=== PATIENT | female | born 1940 | race Caucasian/White ===

== ENCOUNTER 2017-08-08 12:33 | Emergency (ER) | payer MEDICARE ==
[~2017-08-08] VITALS: Ht 170.2 cm; Wt 86.2 kg
[~2017-08-08 12:33] MED LIST changes: -Lasix20 MG PO; -POTCHL20ER PO
[2017-08-08] MEDS ORDERED: Lasix20 MG PO (16:42)
[2017-08-08] MEDS ORDERED: POTCHL20ER PO (16:42)
== END 2017-08-08 16:50 | disposition home or self-care (01) ==
LOC: ER 12:33
DX: I11.0 Hypertensive heart disease with heart failure (principal); I50.9 Heart failure, unspecified; E11.9 Type 2 diabetes mellitus without complications; Z85.3 Personal history of malignant neoplasm of breast; Z79.899 Other long term (current) drug therapy
CPT/HCPCS: 36415; 71260; 80053; 83880; 84484; 85025; 85379; 85651; 93005; 93010; 99284; Q9967

== ENCOUNTER → 2017-08-08 | Outpatient (CLI) | payer MEDICARE ==
[~2017-08-08] MED LIST: B Complex1 EAC2 PO; HYDACE10B PO; Hair, Skin & N1 EACH PO; KRILL OIL500 MG PO; LISI5 PO; Lasix20 MG PO; MAGOXI400 PO; Norco 10-325 T1 EACH PO; POTCHL20ER PO; PROM25 PO; THYR60 PO; Zofran Odt4 MG SL
[2017-08-08 12:24] LABS: BASOPHILS ABSOLUTE AUTO 0.02 K/mm3 (0.00-0.23); BASOPHILS PERCENT AUTO 0 % (0-2); EOSINOPHILS ABSOLUTE AUTO 0.14 K/mm3 (0.00-0.68); EOSINOPHILS PERCENT AUTO 2 % (0-6); Hemoglobin 14.2 g/dL (11.5-16.0); IMMATURE GRAN ABSOLUTE AUTO 0.03 K/mm3 (0.00-0.10); IMMATURE GRAN PERCENT AUTO 0 % (0-1); LYMPHOCYTES ABSOLUTE AUTO 1.47 K/mm3 (0.84-5.20); LYMPHOCYTES PERCENT AUTO 16 % (21-46); MONOCYTES ABSOLUTE AUTO 0.72 K/mm3 (0.16-1.47); MONOCYTES PERCENT AUTO 8 % (4-13); Mean Corpuscular HGB 29.5 pg (26.0-34.0); Mean Corpuscular HGB Conc 32.3 g/dL (31.5-36.5); Mean Corpuscular Volume 91 fL (80-100); Mean Platelet Volume 10.7 fL (9.1-12.4); NEUTROPHILS ABSOLUTE AUTO 7.11 K/mm3 (1.96-9.15); NEUTROPHILS PERCENT AUTO 75 % (41-73); Platelet Count 216 K/mm3 (150-400); RDW Coefficient Variation 12.9 % (11.7-14.2); RDW Standard Deviation 43.4 fL (35.1-46.3); Red Blood Cell Count 4.82 M/mm3 (3.80-5.20); White Blood Cell Count 9.49 K/mm3 (4.00-11.30)
[2017-08-08 12:37] LABS: Alanine Aminotransfer (ALT/SGP 25 U/L (12-78); Albumin, Blood 3.8 g/dL (3.4-5.0); Alk Phos 79 U/L (50-136); Anion Gap 6 mmol/L (6-16); Aspartate Aminotrans (AST/SGOT 18 U/L (12-37); Bilirubin, Total 0.8 mg/dL (0.1-1.0); Blood Urea Nitrogen 7 mg/dL (8-24); Bun/Creatinine Ratio 14.3 (12.0-20.0); CO2, Blood 28 mmol/L (21-32); Calcium, Blood 8.6 mg/dL (8.5-10.1); Chloride, Blood 108 mmol/L (98-108); Creatinine, Blood 0.49 mg/dL (0.40-1.00); Globulin, Blood 3.7 g/dL (2.2-4.0); Glomerular Filtration Rate >60 (60-); Glucose, Blood 126 mg/dL (70-99); Potassium, Blood 3.8 mmol/L (3.5-5.5); Sodium, Blood 142 mmol/L (136-145); Total Protein, Blood 7.5 g/dL (6.4-8.2)
== END ==
LOC: LAB SHORT 12:09
PROVIDERS: Family Medicine
DX: R05 Cough (principal); R53.82 Chronic fatigue, unspecified
CPT/HCPCS: 80053; 85025; 85651

== ENCOUNTER 2018-07-24 02:18 | Inpatient (IN) | payer OTHER, MEDICARE ==
[~2018-07-24] VITALS: Ht 170.2 cm; Wt 87.5 kg
[~2018-07-24 02:18] MED LIST changes: +Lasix20 MG PO; +POTCHL20ER PO
[2018-07-24 02:37] LABS: BASOPHILS ABSOLUTE AUTO 0.03 K/mm3 (0.00-0.23); BASOPHILS PERCENT AUTO 0 % (0-2); EOSINOPHILS ABSOLUTE AUTO 0.03 K/mm3 (0.00-0.68); EOSINOPHILS PERCENT AUTO 0 % (0-6); Hematocrit 21.3 % (33.0-51.0); Hemoglobin 6.8 g/dL (11.5-16.0); IMMATURE GRAN ABSOLUTE AUTO 0.15 K/mm3 (0.00-0.10); IMMATURE GRAN PERCENT AUTO 1 % (0-1); LYMPHOCYTES ABSOLUTE AUTO 1.97 K/mm3 (0.84-5.20); LYMPHOCYTES PERCENT AUTO 17 % (21-46); MONOCYTES ABSOLUTE AUTO 0.21 K/mm3 (0.16-1.47); MONOCYTES PERCENT AUTO 2 % (4-13); Mean Corpuscular HGB 32.1 pg (26.0-34.0); Mean Corpuscular HGB Conc 31.9 g/dL (31.5-36.5); Mean Corpuscular Volume 101 fL (80-100); Mean Platelet Volume 10.7 fL (9.1-12.4); NEUTROPHILS ABSOLUTE AUTO 9.25 K/mm3 (1.96-9.15); NEUTROPHILS PERCENT AUTO 79 % (41-73); Platelet Count 227 K/mm3 (150-400); RDW Coefficient Variation 13.1 % (11.7-14.2); RDW Standard Deviation 47.5 fL (35.1-46.3); Red Blood Cell Count 2.12 M/mm3 (3.80-5.20); White Blood Cell Count 11.64 K/mm3 (4.00-11.30)
[2018-07-24 03:01] LABS: Alanine Aminotransfer (ALT/SGP 13 U/L (12-78); Albumin, Blood 2.7 g/dL (3.4-5.0); Albumin/Globulin Ratio 1.1 (0.8-1.8); Alk Phos 68 U/L (50-136); Anion Gap 15 mmol/L (6-16); Aspartate Aminotrans (AST/SGOT 8 U/L (12-37); Bilirubin, Total 0.4 mg/dL (0.1-1.0); Blood Urea Nitrogen 42 mg/dL (8-24); Bun/Creatinine Ratio 53.5 (12.0-20.0); CO2, Blood 19 mmol/L (21-32); Calcium, Blood 7.5 mg/dL (8.5-10.1); Chloride, Blood 107 mmol/L (98-108); Creatinine, Blood 0.79 mg/dL (0.40-1.00); Globulin, Blood 2.5 g/dL (2.2-4.0); Glomerular Filtration Rate >60 (60-); Glucose, Blood 430 mg/dL (70-99); Potassium, Blood 3.8 mmol/L (3.5-5.5); Sodium, Blood 141 mmol/L (136-145); Total Protein, Blood 5.2 g/dL (6.4-8.2)
[2018-07-24 03:29] LABS: International Normalized Ratio 1.16; Prothrombin Time Results 12.1 Sec (9.7-11.5)
--- NOTE | 2018-07-24 05:30 | NUR ---
ADMIT PT ARRIVES VIA STRETCHER, ALERT AND ORIENTED AND REPORTING LIQUID BM AFTER XRAY. FIRST UNIT PRBC'S INFUSING WITH PLAN FOR TWO AND PROTONIX AT 10ML/HR. PT HAVING LARGE AMOUNT OF MAROOM LIQUID STOOL, DISCUSSED RECTAL TUBE PLACEMENT AND PT AGREES. PT REPORTS RT HIP PAIN BUT IS REFUSING ANY NARCOTICS, JUST REPOSITIONING. PLAN TO DISCUSS LIDOCAINE PATCH WITH AM RN. VSS, EKG SHOWS SR WITH PAC'S, O2 SATS 96% ON RA.
[2018-07-24] MEDS ORDERED: CHOL10002 (05:52)
[2018-07-24 10:54] LABS: Hematocrit 27.1 % (33.0-51.0); Hemoglobin 9.3 g/dL (11.5-16.0); Mean Corpuscular HGB 31.2 pg (26.0-34.0); Mean Corpuscular HGB Conc 34.3 g/dL (31.5-36.5); Mean Platelet Volume 10.4 fL (9.1-12.4); Platelet Count 163 K/mm3 (150-400); RDW Coefficient Variation 14.6 % (11.7-14.2); RDW Standard Deviation 47.7 fL (35.1-46.3); Red Blood Cell Count 2.98 M/mm3 (3.80-5.20); White Blood Cell Count 10.11 K/mm3 (4.00-11.30)
[2018-07-24 10:59] LABS: Mean Corpuscular Volume 91 fL (80-100)
[2018-07-24 11:14] LABS: Alanine Aminotransfer (ALT/SGP 14 U/L (12-78); Albumin, Blood 2.9 g/dL (3.4-5.0); Albumin/Globulin Ratio 1.1 (0.8-1.8); Alk Phos 60 U/L (50-136); Anion Gap 8 mmol/L (6-16); Aspartate Aminotrans (AST/SGOT 8 U/L (12-37); Bilirubin, Total 0.8 mg/dL (0.1-1.0); Blood Urea Nitrogen 40 mg/dL (8-24); Bun/Creatinine Ratio 60.4 (12.0-20.0); CO2, Blood 26 mmol/L (21-32); Calcium, Blood 7.8 mg/dL (8.5-10.1); Chloride, Blood 112 mmol/L (98-108); Creatinine, Blood 0.66 mg/dL (0.40-1.00); Globulin, Blood 2.6 g/dL (2.2-4.0); Glomerular Filtration Rate >60 (60-); Glucose, Blood 160 mg/dL (70-99); Potassium, Blood 3.6 mmol/L (3.5-5.5); Sodium, Blood 146 mmol/L (136-145); Total Protein, Blood 5.5 g/dL (6.4-8.2)
--- NOTE | 2018-07-24 11:33 | NUR ---
Dr. Middleton notified of h/h. gave orders to start pt on cl liquid diet with plan to scope pt tomorrow.
--- NOTE | 2018-07-24 12:12 | NUR ---
REASSESSMENT: Pt has been resting in bed throughout the morning. Her hip remains painful with any movement, but pt refuses pain medication. Rectal tube is putting out maroon colored stool. No emesis. She tolerated the 2 units of blood without any complications so far. Lungs are clear, RA. SR, bp stable. No void yet. Continuing to monitor.
[2018-07-24 15:21] LABS: Hematocrit 25.8 % (33.0-51.0); Hemoglobin 8.8 g/dL (11.5-16.0)
--- NOTE | 2018-07-24 17:56 | NUR ---
SHIFT SUMMARY: PT HAD NO ACUTE CHANGES THIS SHIFT. SHE RECEIVED HER 2ND UNIT OF BLOOD AND TOLERATED IT WELL. HER LABS HAVE BEEN STABLE. SHE IS STILL HAVING DARK MAROON LIQUID STOOL, BUT NO EMESIS. SHE WAS ABLE TO VOID USING THE BEDPAN. SHE IS TOLERATING CLEAR LIQUIDS. PLAN FOR SCOPE IN THE MORNING. HER FAMILY CAME IN AND VISITED WITH HER THIS AFTERNOON. THEY WERE FULLY UPDATED AND ALL QUESTIONS ANSWERED.
--- NOTE | 2018-07-24 20:27 | NUR ---
CARE ASSUMED REPORT RECEIVED, CARE ASSUMED AT 1900. PT ALERT, SITTING UP IN BED DRINKING ENSURE AT SHIFT CHANGE. ASSISTED PT TO REPOSITION. PT REPOSITIONS SLOW AND BECOMES NEARLY TEARFUL DUE TO PAIN ON LEFT HIP. PT DECLINES FENTANYL, STATES SHE MANAGES THE PAIN AT HOME WITH TURMERIC, ESSENTIAL OILS, AND CHIROPRACTIC APPOINTMENTS. VITALS STABLE, SEE FLOWSHEET. SEE SHIFT ASSESSMENT. NS @ 100 ML/HR, PROTONIX GTT INFUSING PER MD ORDERS.
[2018-07-24 20:29] LABS: Hematocrit 23.5 % (33.0-51.0)
--- NOTE | 2018-07-25 | NUR ---
NPO PT NPO AT THIS TIME FOR PLANNED PROCEDURE IN AM
[2018-07-25 02:34] LABS: Hematocrit 21.5 % (33.0-51.0); Hemoglobin 7.2 g/dL (11.5-16.0)
[2018-07-25 02:50] LABS: Anion Gap 5 mmol/L (6-16); Blood Urea Nitrogen 32 mg/dL (8-24); Bun/Creatinine Ratio 48.9 (12.0-20.0); CO2, Blood 27 mmol/L (21-32); Calcium, Blood 7.1 mg/dL (8.5-10.1); Chloride, Blood 113 mmol/L (98-108); Creatinine, Blood 0.66 mg/dL (0.40-1.00); Glomerular Filtration Rate >60 (60-); Glucose, Blood 121 mg/dL (70-99); Potassium, Blood 3.3 mmol/L (3.5-5.5); Sodium, Blood 145 mmol/L (136-145)
--- NOTE | 2018-07-25 03:23 | NUR ---
OXYGEN SATURATION PT NOTED TO HAVE FREQUENT DESATURATIONS INTO LOW-MID 80'S WHILE ASLEEP. 1 LPM NASAL CANNULA PLACED, 02 SATS IMPROVED.
--- NOTE | 2018-07-25 07:17 | NUR ---
SUMMARY NO CHANGES SINCE PREVIOUS NOTE. PT CONTINUES TO BE PAINFUL WITH REPOSITIONING, DECLINES MEDICATIONS. VITALS STABLE WITH 1 LPM NASAL CANNULA. SCOPE PLANNED FOR THIS MORNING.
--- NOTE | 2018-07-25 07:23 | NUR ---
07/25/18 0723 Marian Ash History, Chart, Medications and Allergies reviewed before start of procedure. 3-LEAD EKG REVIEWED WITH PHYSICIAN PRIOR TO START OF PROCEDURE.O2 VIA N/C INTACT THROUGHOUT SEDATION/PROCEDURE. PATIENT DETERMINED TO BE ASA APPROPRIATE FOR PROPOFOL SEDATION PRIOR TO START OF PROCEDURE BY DR. MASON. MONITOR INTACT WITH CONTINUOUS PULSE OXIMETRY AND INTERMITTENT BP.
--- NOTE | 2018-07-25 07:30 | NUR ---
ASSUMED CARE ASSUMED CARE OF PATIENT. PATIENT TO HAVE EGD DONE THIS AM. DR MASON UPDATED RELATED TO LABS. PLAN TO GIVE ANOTHER UNIT PRBC'S WHEN AVAILABLE. PATIENT AWAKE AND ALERT. CONTINUES TO HAVE HIP PAIN. CONTINUES TO NOT WANT ANY NARCOTICS FOR PAIN CONTROL. RECTAL TUBE IN PLACE DRAINING MAROON LIQUID STOOL. DAY SURGERY STAFF HERE SETTING UP FOR EGD.
--- NOTE | 2018-07-25 08:16 | NUR ---
EGD COMPLETE. NO SPECIMINS TAKEN. FEW AREAS INJECTED AND CARTERIZED. PICTURES TAKEN. PATIENT CHANGED TO ICU STATUS DURING PROCEDURE. VSS. PRBC'S INFUSING PATIENT RESTING. EASILY AROUSES WITH STIMULATION. WILL CONTINUE TO MONITOR AND WATCH FOR FURTHER SIGNS OF BLEEDING.
[2018-07-25 12:05] LABS: Hematocrit 25.3 % (33.0-51.0); Hemoglobin 8.6 g/dL (11.5-16.0)
[2018-07-25 13:09] LABS: Source, Urine Catheter
[2018-07-25 13:19] LABS: Appearance, Urine Clear (Clear); Bilirubin, Urine Neg (Neg); Blood, Urine Neg (Neg); Color, Urine Yellow (P-Yellow); Glucose Qualitative, Urine 3+ (Neg); Ketones, Urine Neg (Neg); Leukocyte Esterase, Urine Neg (Neg); Nitrite, Urine Neg (Neg); Protein, Urine Neg (Neg); Urobilinogen, Urine NORM (Normal)
--- NOTE | 2018-07-25 13:46 | NUR ---
FAMILY IN TO SEE PATIENT. PATIENT CONTINUES TO HAVE HIP PAIN ESPECIALLY WITH MOVEMENT. PATIENT UA SENT BECAUSE OF SPASMS WHEN TRYING TO VOID AND RECENTLY TREATED FOR A UTI. PATIENT HAD OVER 800CC OF URINE IN BLADDER. MARRUFO LEFT IN AT THIS TIME. DR BROWN NOTIFIED OF FINDINGS. WILL LEAVE CATHETER IN OVER NIGHT.
--- NOTE | 2018-07-25 17:52 | NUR ---
SUMMARY PATIENT HAD EGD THIS AM. 1 UNIT OF PRBCS GIVEN DURING ENDOSCOPY. PATIENT CONTINUES TO HAVE RECTAL TUBE IN PLACE. UA SENT EARLIER BECAUSE OF RECENT HX OF UTI AND BURNING/PAIN WITH VOIDING. PATIENT HAD OVER 800 CC IN BLADDER POST VOID CATH. CATHETER LEFT IN PLACE AND DR. BROWN UPDATED. PLAN TO REMOVE CATHETER IN AM AND RECTAL TUBE IF DRAINAGE MINIMAL. PATIENT WAS MEDICATED 1X WITH FENTANYL FOR PAIN WITH GOOD RESULTS. PLAN TO GIVE REPORT TO ONCOMING SHIFT WHEN AVAILABLE.
--- NOTE | 2018-07-25 18:18 | NUR ---
Per admit trigger, I met with Rosanne to discuss and Advanced Directive. she was politely dismissive. I will remain available.
[2018-07-25 18:54] LABS: Hematocrit 23.8 % (33.0-51.0); Hemoglobin 8.1 g/dL (11.5-16.0)
--- NOTE | 2018-07-25 22:28 | NUR ---
CARE ASSUMED REPORT RECEIVED, CARE ASSUMED AT 1900. FAMILY AT BEDSIDE AT SHIFT CHANGE. VITALS STABLE. SEE FLOWSHEET. SEE SHIFT ASSESSMENT. PT REPORTS FEELING TIRED TODAY AFTER SCOPE AND VISITORS. ADL'S COMPLETED, FACILITATING REST PER PATIENT REQUEST. DISCUSSED PLAN FOR REMOVAL OF RECTAL TUBE AND CATHETER IN THE MORNING DEPENDING ON OUTPUT, ETC THROUGHOUT NIGHT AND PT AGREEABLE. CALL LIGHT WITHIN REACH.
[2018-07-26 03:50] LABS: Hematocrit 24.8 % (33.0-51.0); Hemoglobin 8.2 g/dL (11.5-16.0)
[2018-07-26 04:27] LABS: Albumin, Blood 2.6 g/dL (3.4-5.0); Anion Gap 6 mmol/L (6-16); Blood Urea Nitrogen 15 mg/dL (8-24); Bun/Creatinine Ratio 23.8 (12.0-20.0); CO2, Blood 25 mmol/L (21-32); Calcium, Blood 7.1 mg/dL (8.5-10.1); Chloride, Blood 114 mmol/L (98-108); Creatinine, Blood 0.63 mg/dL (0.40-1.00); Glomerular Filtration Rate >60 (60-); Glucose, Blood 113 mg/dL (70-99); Potassium, Blood 3.6 mmol/L (3.5-5.5); Sodium, Blood 145 mmol/L (136-145)
[2018-07-26 05:42] LABS: Phosphorus, Blood 2.4 mg/dL (2.5-4.9)
--- NOTE | 2018-07-26 06:43 | NUR ---
SUMMARY THROUGHOUT MOST OF EVENING PT SLEPT SOUNDLY. PT WOKE UP EARLY THIS MORNING STATING, "I FEEL SO MUCH BETTER." PT MUCH MORE ALERT AND QUICK TO RESPOND. PT AWAKE MULTIPLE HOURS IN NIGHT AND REPORTED FEELING FRUSTRATED BY BEING WIDE AWAKE. WHILE PT AWAKE, REINFORCED PLAN FOR GETTING UP AND MOVING TODAY AND PT STATES SHE FEELS READY. WITHIN LAST FEW HOURS HAS FALLEN BACK INTO SOUND SLEEP. RECTAL TUBE AND MARRUFO LEFT IN PLACE TO FACILITATE REST FOR ENERGY TODAY. RECTAL TUBE HAS HAD LESS THAN 100 ML OUTPUT WITHIN THE LAST 24 HOURS, MARRUFO CONTINUES TO DRAIN CLEAR/YELLOW URINE. VITALS STABLE WITH EXCEPTION OF OXYGEN DESATURATION TO MID 80'S WITH DEEP SLEEP. IMPROVED WITH 1 LPM NASAL CANNULA. OTHERWISE, NO CHANGES. SEE ASSESSMENTS/FLOWSHEETS.
--- NOTE | 2018-07-26 07:30 | NUR ---
ASSUMED CARE ASSUMED CARE OF PATIENT. PATIENT RESTING. BEDSIDE REPORT DONE. PLAN TO ENCOURAGE PATIENT TO AMBULATE TODAY. WILL DC MARRUFO AND RECTAL TUBE. WILL CONTINUE TO MONITOR FOR SIGNS OF BLEEDING. WILL NOTIFY PHYSICIANS OF ANY CHANGES. WILL MEDICATE FOR PAIN/DISCOMFORT NEEDED
--- NOTE | 2018-07-26 18:34 | NUR ---
SUMMARY PATIENT OOB X2 TODAY. USING WALKER TO AMBULATE. CONTINUES TO BE UP IN CHAIR AT THIS TIME. FAMILY IN ROOM WITH PATIENT. PATIENT HAD LESS PAIN/DISCOMFORT TODAY. USING WALKER TO AMBULATE FOR SAFETY. RECTAL TUBE AND MARRUFO DC'D EARLIER BEFORE BATH. PATIENT JUST VOIDED 600CC SINCE MARRUFO OUT. NO STOOLS AT THIS TIME BUT CONTINUES TO PASS FLATUS. TOLERATING FOOD/LIQUIDS WELL. NO NAUSEA. WILL GIVE REPORT TO ONCOMING SHIFT WHEN AVAILABLE
--- NOTE | 2018-07-26 20:50 | NUR ---
CARE ASSUMED REPORT RECEIVED, CARE ASSUMED AT 2039 FROM DAMON FRANCIS. PT SITTING UP IN BED TALKING WITH HER AND SON. DENIES NEEDS AT THIS TIME. VITALS STABLE. SEE ASSESSMENT/FLOWSHEET.
--- NOTE | 2018-07-27 02:30 | NUR ---
PT TRANSFERRED TO ROOM 224 FROM ICU 9. SHE IS MEDICALLY STABLE. PT REPORTS RIGHT HIP PAIN, LIDOCAINE PATCH IN PLACE. DENIES N/V. PROTONIX DRIP RESUMED, PT TOLERATING WELL. SHE HAS NOT HAD A STOOL SINCE THE RECTAL TUBE WAS REMOVED YESTERDAY MORNING IN ICU. PT IS A 1 ASSIST UP W/ FWW. WILL CTM.
--- NOTE | 2018-07-27 02:39 | NUR ---
SUMMARY ROOM 224 MADE AVAILABLE FOR PATIENT. REPORT TO SURGICAL FLOOR RN. PT UPDATED AND AGREEABLE. VITALS STABLE. PT STAND AND TRANSFER TO WHEELCHAIR. ESCORTED BY WET POUR SUPERVISOR TO NEW ROOM.
[2018-07-27 05:38] LABS: Hematocrit 27.8 % (33.0-51.0); Hemoglobin 9.1 g/dL (11.5-16.0); Mean Corpuscular HGB 31.3 pg (26.0-34.0); Mean Corpuscular HGB Conc 32.7 g/dL (31.5-36.5); Mean Platelet Volume 10.8 fL (9.1-12.4); Platelet Count 159 K/mm3 (150-400); RDW Coefficient Variation 14.8 % (11.7-14.2); RDW Standard Deviation 49.9 fL (35.1-46.3); Red Blood Cell Count 2.91 M/mm3 (3.80-5.20); White Blood Cell Count 7.48 K/mm3 (4.00-11.30)
[2018-07-27 05:39] LABS: Mean Corpuscular Volume 96 fL (80-100)
[2018-07-27 06:00] LABS: Anion Gap 7 mmol/L (6-16); Blood Urea Nitrogen 13 mg/dL (8-24); CO2, Blood 26 mmol/L (21-32); Chloride, Blood 112 mmol/L (98-108); Creatinine, Blood 0.72 mg/dL (0.40-1.00); Glomerular Filtration Rate >60 (60-); Glucose, Blood 134 mg/dL (70-99); Potassium, Blood 3.4 mmol/L (3.5-5.5); Sodium, Blood 145 mmol/L (136-145)
--- NOTE | 2018-07-27 07:48 | NUR ---
SHIFT SUMMARY PT TRANSFERRED FROM ICU 9 A STABLE MED FOR GI BLEED. PROTONIX DRIP INFUSING, H&H STABLE. SHE IS A&O, ABLE TO MAKE NEEDS KNOWN. 1 ASSIST W/ FWW FOR AMBULATION. LIDOCAINE PATCH TO R HIP FOR SCIATIC PAIN. REPORT PASSED TO ONCOMING SHIFT.
--- NOTE | 2018-07-27 15:05 | NUR ---
potassium patient tearful, tells me iv is causing a lot of pain (potassium piggy back initiated and patient reports pain after this infusion started) potassium infusion rate cut in half and patient reports no decrease in pain leveol patient requests potassium infusion be stopped. contacted Dr Saleh to discuss patients request to stop iv potassium, no new oerders
[2018-07-27] MEDS ORDERED: OMEPRAZOLE MAGN20 MG PO (16:57)
--- NOTE | 2018-07-27 17:32 | NUR ---
1630 patient tearful states "you are all mad at me, i wont be able to return to this hospital and may have to move out of the area" patient tells me she is upset because she thinks the physician who saw her today is mad at her. reassusred patient that no staff is mad at her, offered to contact clinic charge nurse and patient declined. spent 15 min providing reassurance to patient. contacted [facility] office for follow up appt and office staff tells me they will contact patient to schedule. discharge instructions reviewed with patient and patient denies any questions regarding instructions. assisted patient in dressing. patient sitting in chair awaiting family who will take her home
--- NOTE | 2018-07-27 18:07 | NUR ---
patient discharged to home with her son
== END 2018-07-27 18:05 | disposition home or self-care (01) | DRG 378 ==
LOC: ER 02:18 → ICUW 02:19 → SURS 07-27 02:39
PROVIDERS: Emergency Medicine; Internal Medicine; Internal Medicine Gastroenterology; ADMIT Internal Medicine
PROC: 30233N1 Transfusion of Nonautologous Red Blood Cells into Peripheral Vein, Percutaneous Approach (ICD-10-PCS; 2018-07-24)
PROC: 0W3P8ZZ Control Bleeding in Gastrointestinal Tract, Via Natural or Artificial Opening Endoscopic (ICD-10-PCS; principal; 2018-07-25 07:30)
DX: K26.4 Chronic or unspecified duodenal ulcer with hemorrhage (principal); D62 Acute posthemorrhagic anemia; E87.1 Hypo-osmolality and hyponatremia; E87.0 Hyperosmolality and hypernatremia; Z85.3 Personal history of malignant neoplasm of breast; E11.65 Type 2 diabetes mellitus with hyperglycemia; I10 Essential (primary) hypertension; E03.9 Hypothyroidism, unspecified; E87.6 Hypokalemia; E83.51 Hypocalcemia; K20.9 Esophagitis, unspecified; K29.60 Other gastritis without bleeding
CPT/HCPCS: 36415; 36430; 51702; 71045; 72100; 80048; 80053; 80069; 81003; 82272; 82330; 82947; 83036; 85014; 85018; 85025; 85027; 85610; 85730; 86850; 86900; 86901; 86920; 86923; 90686; 93005; 93010; 96361; 96365; 96375; 96376; 97162; 97165; 97530; 99285-25; C9113; G0378; J0610; J2405; J3010; J3480; J7030; J7060; J7120; P9016

== ENCOUNTER 2018-10-19 06:53 | Day surgery (SDC) | payer MEDICARE ==
[~2018-10-19] VITALS: Ht 167.6 cm; Wt 85.3 kg
[~2018-10-19 06:53] MED LIST changes: +CHOL10002; +OMEPRAZOLE MAGN20 MG PO
== END 2018-10-19 08:57 | disposition home or self-care (01) ==
LOC: ORSCSDS 06:53
PROVIDERS: Internal Medicine Gastroenterology
PROC: 0DB98ZX Excision of Duodenum, Via Natural or Artificial Opening Endoscopic, Diagnostic (ICD-10-PCS; principal; 2018-10-19 08:00)
PROC: 0DB68ZX Excision of Stomach, Via Natural or Artificial Opening Endoscopic, Diagnostic (ICD-10-PCS; principal; 2018-10-19 08:00)
DX: D50.9 Iron deficiency anemia, unspecified (principal); K29.70 Gastritis, unspecified, without bleeding; K44.9 Diaphragmatic hernia without obstruction or gangrene; K20.9 Esophagitis, unspecified; K29.80 Duodenitis without bleeding; K57.10 Diverticulosis of small intestine without perforation or abscess without bleeding; I10 Essential (primary) hypertension; E11.9 Type 2 diabetes mellitus without complications; I25.10 Atherosclerotic heart disease of native coronary artery without angina pectoris; Z79.899 Other long term (current) drug therapy
CPT/HCPCS: 82947; 88305; 88342; J0330; J0461; J1980; J2405; J2704; J7120

== ENCOUNTER 2019-06-21 06:10 | Inpatient (IN) | payer MEDICARE, SELFPAY ==
[~2019-06-21] VITALS: Ht 170.2 cm; Wt 85.0 kg
[2019-06-21 07:15] LABS: BASOPHILS ABSOLUTE AUTO 0.03 K/mm3 (0.00-0.23); BASOPHILS PERCENT AUTO 0 % (0-2); EOSINOPHILS ABSOLUTE AUTO 0.07 K/mm3 (0.00-0.68); EOSINOPHILS PERCENT AUTO 1 % (0-6); Hematocrit 45.1 % (33.0-51.0); Hemoglobin 14.2 g/dL (11.5-16.0); IMMATURE GRAN ABSOLUTE AUTO 0.05 K/mm3 (0.00-0.10); IMMATURE GRAN PERCENT AUTO 1 % (0-1); LYMPHOCYTES ABSOLUTE AUTO 1.72 K/mm3 (0.84-5.20); LYMPHOCYTES PERCENT AUTO 16 % (21-46); MONOCYTES ABSOLUTE AUTO 0.56 K/mm3 (0.16-1.47); MONOCYTES PERCENT AUTO 5 % (4-13); Mean Corpuscular HGB 28.9 pg (26.0-34.0); Mean Corpuscular HGB Conc 31.5 g/dL (31.5-36.5); Mean Corpuscular Volume 92 fL (80-100); Mean Platelet Volume 11.1 fL (9.1-12.4); NEUTROPHILS ABSOLUTE AUTO 8.19 K/mm3 (1.96-9.15); NEUTROPHILS PERCENT AUTO 77 % (41-73); Platelet Count 276 K/mm3 (150-400); RDW Coefficient Variation 14.3 % (11.7-14.2); Red Blood Cell Count 4.92 M/mm3 (3.80-5.20); White Blood Cell Count 10.62 K/mm3 (4.00-11.30)
[2019-06-21 07:37] LABS: Alanine Aminotransfer (ALT/SGP 66 U/L (12-78); Albumin, Blood 3.9 g/dL (3.4-5.0); Albumin/Globulin Ratio 1.2 (0.8-1.8); Alk Phos 82 U/L (50-136); Anion Gap 12 mmol/L (6-16); Aspartate Aminotrans (AST/SGOT 51 U/L (12-37); Bilirubin, Total 0.8 mg/dL (0.1-1.0); Blood Urea Nitrogen 20 mg/dL (8-24); Bun/Creatinine Ratio 26.5 (12.0-20.0); CO2, Blood 21 mmol/L (21-32); Calcium, Blood 8.8 mg/dL (8.5-10.1); Chloride, Blood 103 mmol/L (98-108); Creatinine, Blood 0.75 mg/dL (0.40-1.00); Free Thyroxine 1.47 ng/dL (0.70-1.60); Globulin, Blood 3.2 g/dL (2.2-4.0); Glomerular Filtration Rate >60 (60-); Glucose, Blood 221 mg/dL (70-99); Magnesium, Blood 2.2 mg/dL (1.6-2.4); Potassium, Blood 4.1 mmol/L (3.5-5.5); Sodium, Blood 136 mmol/L (136-145); Total Protein, Blood 7.1 g/dL (6.4-8.2); Troponin I 0.193 ng/mL (0.000-0.040)
[2019-06-21] MEDS ORDERED: Klor-Con 1010 MEQ PO (11:11)
--- NOTE | 2019-06-21 12:37 | NUR ---
pt states that her breathing is a little better. States she would like to try to eat her lunch right now. Atrial flutter at 84 bpm per tele surveillance system monitor. Vital signs documented in capsule.
[2019-06-21] MEDS ORDERED: FURO40 PO (12:56)
--- NOTE | 2019-06-21 17:40 | NUR ---
pt was assisted to the bsc, when she got back to bed she started having runs of vtach, then continuous. this lasted for two minutes, rapid response was called, notified Dr. Gibson he came to room, she came out of it on her own, but is not feeling well, ordered labs and mag rider, and to transfer her to icu, report was given to Logan JOSE, she was taken via bed.
--- NOTE | 2019-06-21 18:07 | NUR ---
ARRIVAL NOTE: 1725: PT ARRIVED TO ROOM VIA BED S/P INLAYER SILVER. TNX'D TO BED AND ORIENTED TO ROOM. MG AND CMB DRAWN PER LAB. PT A+O X3. PLESANT AND COOPERATIVE WITH CARE. ANSWER QUESTIONS APPROPRIATELY AND FOLLOWS COMMANDS. PT IS DYSPNEIC AT THIS TIME WITH MINIMAL EXERTION. LUNGS CLEAR T/O BUT DIMINISHED IN THE BILATERAL BASES. SATS >90% ON 2L 02 VIA N/C. HR IRREGULAR, ATRIAL FIB- 130'S RANGE. AWAITING MG IVPB AND AMIODARONE GTT TO ARRIVE FROM PHARMACY. PT WITH 2+ PITTING EDEMA IN THE BILATERAL LE'S. ABD SOFT/ROUND/NON-TENDER. BT'S ACTIVE X4 QAUDS. PT IS GOING TO ATTEMPT TO EAT SOME DINNER. PT REPORTS SHE HAS BEEN GETTING OOB TO BSC TO VOID. PENDING UA. -DNR STATUS
[2019-06-21 18:22] LABS: Anion Gap 9 mmol/L (6-16); Blood Urea Nitrogen 28 mg/dL (8-24); Bun/Creatinine Ratio 29.9 (12.0-20.0); CO2, Blood 22 mmol/L (21-32); Calcium, Blood 8.8 mg/dL (8.5-10.1); Chloride, Blood 104 mmol/L (98-108); Creatinine, Blood 0.94 mg/dL (0.40-1.00); Glomerular Filtration Rate >60 (60-); Glucose, Blood 197 mg/dL (70-99); Magnesium, Blood 2.4 mg/dL (1.6-2.4); Potassium, Blood 4.8 mmol/L (3.5-5.5); Sodium, Blood 135 mmol/L (136-145); Troponin I 0.195 ng/mL (0.000-0.040)
--- NOTE | 2019-06-21 19:00 | NUR ---
ASSUMED CARE ASSUMED CARE OF PATIENT. AWAKE AND ALERT. ORIENTED X 3. APPEARS ANXIOUS AND FEARFUL. PT STATES "I FEEL AWFUL" AND "I DON'T KNOW WHAT'S GOING ON." COLOR PALE. SKIN IS COOL AND CLAMMY. WEAK PULSES IN EXTREMITIES. MONITOR SHOWS AFIB/FLUTTER, RATE 110-120s. SBP 90-100s. ABD DISTENDED, SLIGHTLY FIRM. VOIDED APPROXIMATELY 5CC AND STATES THAT SHE FEELS LIKE SHE DIDN'T COMPLETELY EMPTY BLADDER. DOES C/O PRESSURE IN LOWER ABDOMEN/BLADDER. AMIODARONE GTT 1MG/MIN PER ORDER. SEE SHIFT ASSESSMENT FOR FULL ASSESSMENT.
--- NOTE | 2019-06-21 19:29 | NUR ---
REPORTED OFF TO DAMON THORNTON WHOM IS ASSUMING CARE OF THIS PT.
--- NOTE | 2019-06-21 20:35 | NUR ---
CALL TO MD JUNG PARKER, JUN, NOTIFIED OF SBP 90-100 AND COOL, CLAMMY SKIN. ALSO NOTIFIED OF MARRUFO CATHETER PLACEMENT WITH MINIMAL URINE OUTPUT OF ONLY 2-3CC S/P IV LASIX. BLADDER SCAN DONE AND SHOWED NO URINE IN BLADDER.
--- NOTE | 2019-06-21 20:45 | NUR ---
CARDIOLOGY CONSULT/UPDATE DR. DORMAN NOTIFIED OF CONSULT AND GIVEN INFO ON PT'S STATUS. NOTIFIED OF DIAPHORESIS AND SOB, WELL SBP 90-100s. NOTIFIED OF MINIMAL URINE OUTPUT. NEW ORDER RECEIVED FOR STAT EKG AND ECHO.
[2019-06-21 21:09] LABS: BASOPHILS ABSOLUTE AUTO 0.05 K/mm3 (0.00-0.23); BASOPHILS PERCENT AUTO 0 % (0-2); EOSINOPHILS ABSOLUTE AUTO 0.06 K/mm3 (0.00-0.68); EOSINOPHILS PERCENT AUTO 0 % (0-6); Hematocrit 50.4 % (33.0-51.0); Hemoglobin 15.9 g/dL (11.5-16.0); IMMATURE GRAN ABSOLUTE AUTO 0.11 K/mm3 (0.00-0.10); IMMATURE GRAN PERCENT AUTO 1 % (0-1); LYMPHOCYTES ABSOLUTE AUTO 2.35 K/mm3 (0.84-5.20); LYMPHOCYTES PERCENT AUTO 17 % (21-46); MONOCYTES ABSOLUTE AUTO 0.83 K/mm3 (0.16-1.47); MONOCYTES PERCENT AUTO 6 % (4-13); Mean Corpuscular HGB 29.5 pg (26.0-34.0); Mean Corpuscular HGB Conc 31.5 g/dL (31.5-36.5); Mean Corpuscular Volume 94 fL (80-100); Mean Platelet Volume 10.7 fL (9.1-12.4); NEUTROPHILS ABSOLUTE AUTO 10.74 K/mm3 (1.96-9.15); NEUTROPHILS PERCENT AUTO 76 % (41-73); Platelet Count 274 K/mm3 (150-400); RDW Coefficient Variation 14.2 % (11.7-14.2); RDW Standard Deviation 48.8 fL (35.1-46.3); Red Blood Cell Count 5.39 M/mm3 (3.80-5.20); White Blood Cell Count 14.14 K/mm3 (4.00-11.30)
--- NOTE | 2019-06-21 21:31 | NUR ---
ECHOCARDIOGRAM COMPLETED
--- NOTE | 2019-06-21 23:00 | NUR ---
BIPAP CONTINUES WITH SHORT PERIODS OF APNEA FOLLOWED BY PERIODS OF TACHYPNEA. WORK OF BREATHING HAS INCREASED. ATTEMPTED TRIAL OF BIPAP PER JUNG PARKER NP, BUT PT IMMEDIATELY REFUSES, STATING SHE CAN'T TOLERATE THE MASK ON HER FACE. REMAINS ON 3L NC AT THIS TIME.
[2019-06-21 23:12] LABS: Source, Urine Clean Catch
[2019-06-21 23:17] LABS: Bilirubin, Urine Neg (Neg); Blood, Urine 3+ (Neg); Glucose Qualitative, Urine Neg (Neg); Ketones, Urine 1+ (Neg); Leukocyte Esterase, Urine 3+ (Neg); Nitrite, Urine Neg (Neg); Protein, Urine 2+ (Neg); Specific Gravity, Urine 1.025 (1.003-1.022); Urobilinogen, Urine NORM (Normal)
[2019-06-21 23:24] LABS: Appearance, Urine Cloudy (Clear); Color, Urine Yellow (P-Yellow)
[2019-06-21 23:25] LABS: Bacteria Many /hpf; Squamous Epithelial Cells Many /hpf (Few); White Blood Cells, Urine TNTC /hpf (0-5)
--- NOTE | 2019-06-21 23:25 | NUR ---
ANXIETY PT C/O INCREASED ANXIETY. STATES "I WANT TO GO TO SLEEP, BUT I CAN'T KEEP MY EYES CLOSED." CALL TO JUNG PARKER NP. NEW ORDER RECEIVED FOR NOW DOSE OF XANAX 0.25MG PO.
--- NOTE | 2019-06-22 03:25 | NUR ---
INCREASED DYSPNEA PT C/O INCREASED DYSPNEA. BREATHING PATTERN SHOWS SPURTS OF TACHYPNEA FOLLOWED BY A PERIOD OF APNEA OF APPROXIMATELY 10-20 SECONDS. OFFERED BIPAP TO PATIENT AND EDUCATED PT ON REASON FOR BIPAP, BUT PT REFUSES AT THIS TIME. STATES "I CAN'T WEAR IT. IT MAKES ME FEEL LIKE I'M SUFFOCATING." WILL CONTINUE TO MONITOR.
--- NOTE | 2019-06-22 06:29 | NUR ---
SHIFT SUMMARY REMAINS ON AMIODARONE GTT @ 1MG/MIN PER DR. DORMAN. MONITOR SHOWS AFIB ALTERNATING WITH AFLUTTER, RATE 80-110s. UNABLE TO OBTAIN NIBP PER MONITOR. DOPPLER PRESSURES ONLY- SYSTOLIC PRESSURES HAVE BEEN 90s-100s T/O NOC. REMAINS ON 3L NC- SATS STABLE. CONTINUES WITH C/O DYSPNEA WHEN AWAKE. RESPIRATIONS ARE TACHYPNEIC WITH INTERMITTENT PERIODS OF APNEA. ANXIOUS AND FEARFUL WHEN AWAKE. MEDICATED WITH XANAX 0.25MG PO X 1 DOSE WITH MODERATE RELIEF OF AGITATION. COLOR PALE, SKIN COOL AND SLIGHLTY CLAMMY. PT HAS BEEN TAKING SIPS OF WATER T/O NOC, BUT COUGHING NOTED THIS MORNING WITH SWALLOWING. MARRUFO WITH ONLY 45CC OF URINE T/O SHIFT- MD HAS BEEN NOTIFIED OF DECREASED URINE OUTPUT. URINE IS CLOUDY WITH SEDIMENT NOTED. CONVERSATION STARTED DURING THIS SHIFT REGARDING PLAN OF CARE- FULL TREATMENT VS COMFORT CARE/HOSPICE. PT REMAINS A DNR AT THIS TIME.
[2019-06-22 06:50] LABS: BASOPHILS ABSOLUTE AUTO 0.08 K/mm3 (0.00-0.23); BASOPHILS PERCENT AUTO 0 % (0-2); EOSINOPHILS ABSOLUTE AUTO 0.01 K/mm3 (0.00-0.68); EOSINOPHILS PERCENT AUTO 0 % (0-6); Hemoglobin 18.4 g/dL (11.5-16.0); IMMATURE GRAN ABSOLUTE AUTO 0.41 K/mm3 (0.00-0.10); IMMATURE GRAN PERCENT AUTO 2 % (0-1); LYMPHOCYTES ABSOLUTE AUTO 1.52 K/mm3 (0.84-5.20); LYMPHOCYTES PERCENT AUTO 8 % (21-46); MONOCYTES ABSOLUTE AUTO 1.75 K/mm3 (0.16-1.47); MONOCYTES PERCENT AUTO 9 % (4-13); Mean Corpuscular HGB 29.3 pg (26.0-34.0); Mean Corpuscular HGB Conc 30.3 g/dL (31.5-36.5); Mean Platelet Volume 10.9 fL (9.1-12.4); NEUTROPHILS ABSOLUTE AUTO 15.51 K/mm3 (1.96-9.15); NEUTROPHILS PERCENT AUTO 80 % (41-73); Platelet Count 258 K/mm3 (150-400); RDW Coefficient Variation 14.9 % (11.7-14.2); RDW Standard Deviation 51.8 fL (35.1-46.3); Red Blood Cell Count 6.29 M/mm3 (3.80-5.20); White Blood Cell Count 19.28 K/mm3 (4.00-11.30)
[2019-06-22 06:54] LABS: Hematocrit 60.8 % (33.0-51.0); Mean Corpuscular Volume 97 fL (80-100)
[2019-06-22 07:10] LABS: Albumin, Blood 3.5 g/dL (3.4-5.0); Bilirubin, Total 2.8 mg/dL (0.1-1.0); Bun/Creatinine Ratio 20.5 (12.0-20.0); Calcium, Blood 8.9 mg/dL (8.5-10.1); Creatinine, Blood 1.56 mg/dL (0.40-1.00); Globulin, Blood 3.5 g/dL (2.2-4.0); Potassium, Blood 5.5 mmol/L (3.5-5.5)
--- NOTE | 2019-06-22 08:16 | NUR ---
ASSESSMENT- PT VERY PALE, CLAMMY, MOTTLED FEET AND KNEES. DOES AWAKEN TO NAME, ABLE TO ANSWER BRIEF QUESTIONS. UNABLE TO OBTAIN BP VIA MONITOR, DOPPLER BP 74/D. LUNGS CLEAR, RESPIRATIONS IRREGULAR, RATE VARIES FROM 20-50'S. APICAL DISTANT. SATURATIONS LABILE-DIFFICULT TO OBTAIN CONSISTENT WAVEFORM. ABDOMEN SOFT, VERY DISTENDED. BLADDER SCAN ONLY 6 CC. UO VIA MARRUFO POOR. PIV X 2 INTACT, AMIODARONE GTT AT 1 MG/MIN-D/C NOW. NOTIFIED DR. OCHOA-AT BEDSIDE. PLANS FOR COMFORT CARE. NOTIFIED PT'S DIL-TO BRING IN. PATTERNMAKER PLASTER AND PLASTIC AT BEDSIDE.
--- NOTE | 2019-06-22 09:30 | NUR ---
PT'S FAMILY HERE-AMARILIS GEOVANNY WITH PT'S KAYCE. DR. OCHOA HERE-UPDATED FAMILY. AGREEABLE WITH PLAN COMFORT CARE. MONITOR OFF, PT WITH EYES CLOSED, RESTING, NO S/S PAIN
--- NOTE | 2019-06-22 10:16 | NUR ---
ORAL CARE DONE, LARGE CAST REMOVED FROM MOUTH. PT SLEEPING, AWAKENS TO NAME. FAMILY AT BEDSIDE. DENIES PAIN
--- NOTE | 2019-06-22 10:18 | NUR ---
Spiritual care visit conducted. Patient is minimally responsive, able to answer in short sentences. Patient states that she has no pain and affirms that she is having shortness of breath. Patient is able to say, "water" and affirm that she would like prayer. I gladly provided prayer, I sat with patient praying and reading scripture to her until patient's daughter in law, Domi and patient's arrives. Patient is unresponsive with family so I turn my attention to family needs, conducting a life review, spiritual assessment and providing a calming presence. I will continue to remain available to patient and family.
--- NOTE | 2019-06-22 12:14 | NUR ---
SLEEPING, AWAKENS TO NAME. REPOSITIONED. FAMILY HERE AT BEDSIDE, DENIES QUESTIONS
--- NOTE | 2019-06-22 14:09 | NUR ---
PT STILL AWAKENS TO NAME, BACK TO SLEEP QUICKLY. DENIES PAIN. PLANS OR TRANSFER TO MEDICAL FLOOR. BATH DONE
--- NOTE | 2019-06-22 14:38 | NUR ---
REPORT TO JUAN PABLO JOSE, PT TO TRANSFER TO ROOM 333. QUESTIONS REGARDING PLAN OF CARE EXPLAINED TO AMARILIS.
--- NOTE | 2019-06-22 15:21 | NUR ---
1447 PT ARRIVED TO MEDICAL FLOOR VIA BED. PT TRANSFERED TO MEDICAL BED WITH 5 STAFF, PT TOLERATED WELL. PT WITHOUT S/SX OF DISTRESS OR DISCOMFORT. AND CHILDREN AT BEDSIDE.
--- NOTE | 2019-06-22 18:17 | NUR ---
1757 PT TRANSFERED FROM PCU TO MEDICAL FLOOR VIA W/C. PT SELF TRANSFERED TO BED WITHOUT ISSUE. PT ON 2L O2 NC.
--- NOTE | 2019-06-22 18:21 | NUR ---
Spiritual care TOD request: Called by RN to support and affirm family at TOD. Mrs. Bashir passed peacefully with her loving family at bedside. Prayers of commendation, gratitude and love well recieved by tearful family. Family expressed appreciation for [employer] Operator[employer] Marie's care and attention throughout the day. Affirmed obvious love, provided gentle bereavement relocation counselor/recommendations. Family making phone calls and supporting one another. Advised them to inform RN of home selection when ready.
--- NOTE | 2019-06-22 19:03 | NUR ---
1855 PT DISCHARGED FROM ROOM WITH [facility]. POST MORTEM CARE COMPLETED PRIOR.
--- NOTE | 2019-06-23 07:06 | NUR ---
LATE ENTRY FOR 06/22/19. 1447 PT TRANSFERED FROM ICU FOR COMRFORT MEASURES, PT SOMULENT, NO S/SX OF DISTRESS OR DISCOMFORT. 1548 TIME OF , CN AND COURT ATTENDANT NOTIFIED, CALL OUT TO DR. OCHOA. [address]5 DR[address] OCHOA NOTIFIED OF TOD. 1745 FAMILY DEPARTED WITH PT'S BELONGINGS, INCLUDING RINGS.
== END 2019-06-22 15:48 | DRG 308 ==
LOC: ER 06:10 → ICUE 09:27 → PCU 09:27 → ICUW 17:33 → ICUE 17:37 → MEDS 06-22 14:47
PROVIDERS: Emergency Medicine; Nurse Practitioner Acute Care; ADMIT Hospitalist
DX: I48.0 Paroxysmal atrial fibrillation (principal); I50.43 Acute on chronic combined systolic (congestive) and diastolic (congestive) heart failure; E87.2 Acidosis; N17.9 Acute kidney failure, unspecified; I48.92 Unspecified atrial flutter; I11.0 Hypertensive heart disease with heart failure; I47.2 Ventricular tachycardia; Z51.5 Encounter for palliative care; E03.9 Hypothyroidism, unspecified; E11.9 Type 2 diabetes mellitus without complications; Z85.3 Personal history of malignant neoplasm of breast; E87.5 Hyperkalemia; Z66 Do not resuscitate; K21.0 Gastro-esophageal reflux disease with esophagitis; I25.5 Ischemic cardiomyopathy; I34.0 Nonrheumatic mitral (valve) insufficiency; R57.0 Cardiogenic shock; R41.0 Disorientation, unspecified; I47.1 Supraventricular tachycardia
CPT/HCPCS: 36415; 51702; 71045; 80048; 80053; 81001; 82947; 83735; 83880; 84439; 84443; 84484; 85025; 93005; 93010; 93306; 94660; 96365; 96366; 96375; 96376; 99285-25; J0282; J0696; J1940; J7060